=== PATIENT | female | born 1980 | race Caucasian/White ===

== ENCOUNTER 2018-02-22 02:45 | Inpatient (IN) | END 2018-02-23 17:10 | disposition home or self-care (01) | DRG 872 ==

== ENCOUNTER 2018-09-08 03:57 | Inpatient (IN) | payer OTHER ==
[~2018-09-08] VITALS: Ht 162.6 cm; Wt 107.3 kg
[~2018-09-08 03:57] MED LIST: LEVO137T30 PO; SULF-182 PO
[2018-09-08] MEDS ORDERED: SODIUM CHLORIDE 0.9% 1L BAG IV* STA (04:02)
[2018-09-08] MEDS ORDERED: CEFTRIAXONE 1 GM/50 ML (PMX) 50 ML IVPB STA (04:02)
[2018-09-08] MEDS ORDERED: KETOROLAC 15 MG INJ IV STA (04:22)
[2018-09-08] MEDS ORDERED: INSULIN REGULAR, HUMAN 100 UNIT/1 ML 3ML VIAL ONE (05:09)
[2018-09-08] MEDS ORDERED: INSULIN REGULAR, HUMAN 100 UNIT/1 ML 3ML VIAL SC ONE (05:30)
--- NOTE | 2018-09-08 05:45 | ERD ---
ER Documentation Chief Complaint Chief Complaint ABD PAIN WITH FLANK X2DAYS HPI This is a 38-year-old female who presents for evaluation of 2 days of intermittent abdominal pain and right-sided flank pain. Today she had a fever, generally felt unwell, and this is her primary reason for presentation. She has not had any vomiting, no chest pain or shortness of breath. She did not take any medication prior to arrival, there are no alleviating factors ROS All systems reviewed and are negative except as per history of present illness. Medications Home Meds Active Scripts Sulfamethoxazole/Trimethoprim (Sulfamethoxazole-Tmp Ds Tablet) 1 Each Tablet, 1 TAB PO BID for 5 Days, TAB Prov:LAURA REYNOSO 02/23/18 Levothyroxine Sodium* (Synthroid*) 137 Mcg Tablet, 137 MCG PO DAILY@0600 for 30 Days, TAB Prov:LAURA REYNOSO 02/23/18 Allergies Allergies: Coded Allergies: No Known Allergies (Verified Allergy, Unknown, 11/08/11) PMhx/Soc History of Surgery: Yes (CS X3) Anesthesia Reaction: No Hx Neurological Disorder: No Hx Respiratory Disorders: No Hx Cardiac Disorders: No Hx Psychiatric Problems: Yes (DEPRESSION ,ANXIETY) Hx Miscellaneous Medical Probl: Yes (hx. of VAPE use. ) Hx Alcohol Use: Yes Hx Substance Use: No Hx Tobacco Use: No (VAPE) Physical Exam Vitals Vital Signs Date Temp Pulse Resp B/P (MAP) Pulse Ox O2 O2 Flow FiO2 Time Delivery Rate 09/08/18 101.6 115 18 141/85 99 04:01 (103) Physical Exam Const: Diaphoretic, mild distress Head: Atraumatic Eyes: Normal Conjunctiva ENT: Normal External Ears, Nose and Mouth. Neck: Full range of motion. No meningismus. Resp: Clear to auscultation bilaterally Cardio: Regular rate and rhythm, no murmurs Abd: Soft, there is no focal tenderness, there is no McBurney's point tenderness, negative Aguirre sign, no guarding, non distended. Normal bowel sounds Skin: No petechiae or rashes Back: No midline or flank tenderness Ext: No cyanosis, or edema Neur: Awake and alert Psych: Normal Mood and Affect Result Diagram: 09/08/18 04109/08/18 041 Results 24 hrs Laboratory Tests Test 09/08/18 04:10 09/08/18 04:11 09/08/18 04:16 09/08/18 04:21 Urine Color YELLOW Urine Clarity CLEAR Urine pH 6.0 Urine Specific 1.037 [place] Urine Ketones TRACE mg/dL Urine Nitrite POSITIVE mg/dL Urine Bilirubin NEGATIVE mg/dL Urine NEGATIVE mg/dL Urobilinogen Urine Leukocyte NEGATIVE Deonte/ul Esterase Urine Microscopic 15 /HPF RBC Urine Microscopic 7 /HPF WBC Urine Squamous FEW /HPF Epithelial Cells Urine Bacteria FEW /HPF Urine Hemoglobin 1+ mg/dL Urine Glucose 3+ mg/dL Urine Total NEGATIVE mg/dl Protein White Blood Count 15.5 10^3/ul Red Blood Count 5.04 10^6/ul Hemoglobin 14.1 g/dl Hematocrit 41.6 % Mean Corpuscular 82.5 fl Volume Mean Corpuscular 28.0 pg Hemoglobin Mean Corpuscular 33.9 g/dl Hemoglobin Concen t Red Cell 12.1 % Distribution Width Platelet Count 282 10^3/UL Mean Platelet 9.4 fl Volume Immature 0.800 % Granulocytes % Neutrophils % 86.1 % Lymphocytes % 5.6 % Monocytes % 7.1 % Eosinophils % 0.1 % Basophils % 0.3 % Nucleated Red 0.0 /100WBC Blood Cells % Immature 0.130 10^3/ul Granulocytes # Neutrophils # 13.3 10^3/ul Lymphocytes # 0.9 10^3/ul Monocytes # 1.1 10^3/ul Eosinophils # 0.0 10^3/ul Basophils # 0.0 10^3/ul Nucleated Red 0.0 10^3/ul Blood Cells # Prothrombin Time 14.6 Sec Prothrombin Time 1.1 Ratio INR International 1.13 Normalized Ratio Activated 29.7 Sec Partial Thrombopl ast Time Sodium Level 132 mmol/L Potassium Level 4.2 mmol/L Chloride Level 96 mmol/L Carbon Dioxide 23 mmol/L Level Anion Gap 13 Blood Urea 11 mg/dl Nitrogen Creatinine 0.58 mg/dl Est Glomerular > 60 mL/min Filtrat Rate mL/min Glucose Level 462 mg/dl Calcium Level 9.6 mg/dl Total Bilirubin 0.9 mg/dl Direct Bilirubin 0.00 mg/dl Indirect 0.9 mg/dl Bilirubin Aspartate Amino 28 IU/L Transf (AST/SGOT) Alanine 30 IU/L Aminotransferase (ALT/SGPT) Alkaline 90 IU/L Phosphatase Troponin I < 0.012 ng/ml Total Protein 7.7 g/dl Albumin 4.0 g/dl Globulin 3.70 g/dl Albumin/Globulin 1.08 Ratio Lipase 67 U/L Bedside Urine pH 6.0 (LAB) Bedside Urine 1+ Protein (LAB) Bedside Urine 0.50% Glucose (UA) Bedside Urine Negative Ketones (LAB) Bedside Urine 1+ Blood Bedside Urine Positive Nitrite (LAB) Bedside Urine Negative Leukocyte Esteras e (L POC Venous 1.8 mmol/L Lactate POC Beta HCG, NEGATIVE Qualitative Test 09/08/18 04:25 09/08/18 05:27 Bedside Glucose 511 mg/dL 444 mg/dL Current Medications Medications Dose Sig/Italo Start Time Status Last (Trade) Ordered Route PRN Stop Time Admin Dose Reason Admin Sodium 3,180 ml BOLUS OVER 2 09/08/18 DC 09/08/18 Chloride HOURS STAT 04:02 04:15 (NS) IV* 09/08/18 04:07 Ceftriaxone 50 ml @ ONCE STAT 09/08/18 DC 09/08/18 Sodium 100 mls/hr IVPB 04:02 04:32 09/08/18 04:31 Ketorolac 15 mg ONCE STAT 09/08/18 DC 09/08/18 Tromethamine IV 04:22 04:32 (Toradol) 09/08/18 04:24 Insulin 10 unit ONCE ONCE 09/08/18 DC 09/08/18 Human SC 05:30 05:30 Regular 09/08/18 05:31 (Humulin R) Insulin 300 unit STK-MED 09/08/18 DC Human ONCE .ROUTE 05:09 Regular 09/08/18 05:10 (Humulin R) Procedures/MDM This is a 38-year-old female presents for evulsion of fever and abdominal pain. Her abdomen is poorly localized, she has no peritoneal signs on abdominal exam, a code sepsis was called given her fever, tachycardia, her labs are notable for leukocytosis, as well as a blood sugar 462. She had no known history of diabetes, she had no evidence of DKA, insulin subcu was given at 10 units. She is given ceftriaxone empirically, as her urinalysis was nitrite positive, with presumptive pyelonephritis. She did not have significant pyuria, the CT scan of the abdomen pelvis was ordered to evaluate for any secondary cause of her fever. This is pending. Sepsis Documentation: Patient's infectious symptoms have not stabilized and the patient is at risk of rapid decompensation. The patient will be admitted for careful hydration, antibiotic therapy, and infectious source control. SEVERE SEPSIS CRITERIA: Infectious source: Pyelonephritis End organ damage indicated by: No evidence of end organ damage SEPSIS MANAGEMENT Time of recognition of sepsis: [Upon arrival]. Time of recognition of severe sepsis: [No severe sepsis at this time]. Time of recognition of septic shock: [No septic shock at this time]. 3 HOUR BUNDLE Blood cultures x 2 before broad-spectrum antibiotics: [Yes] 30 ml/kg NS bolus [Completed] Initial lactate [lactate one-point Repeat lactate [pending SEPTIC SHOCK ASSESSMENT: No evidence of septic shock CRITICAL CARE Critical care time [35] minutes Emergent fluid management while maintaining close respiratory support. P rovision of immediate and broad-spectrum antibiotic therapy. Simultaneous assessment for possible sources in order to direct targeted therapy. Consideration for invasive and chemical support to prevent cardiopulmonary collapse. Critical care time is independent of procedures performed. EKG: Rate/Rhythm: Normal Sinus Rhythm QRS, ST, T-waves: No changes consistent w/ acute ischemia Impression: No evidence of ischemia or arrhythmia Departure Diagnosis: Primary Impression: Abdominal pain Abdominal location: unspecified location Qualified Codes: R10.9 - Unspecified abdominal pain Additional Impression: Sepsis Sepsis type: sepsis due to unspecified organism Qualified Codes: A41.9 - Sepsis, unspecified organism Condition: CARLITO Velasquez MD Sep 08, 2018 05:45
[2018-09-08] MEDS ORDERED: LEVO137T26 PO (06:34)
[2018-09-08 09:30] VITALS: BP 153/79; PULSE 102; RESP 18
[2018-09-08] MEDS ORDERED: HYDROCODONE/APAP (5/325) TAB PO PRN (12:00)
[2018-09-08 12:08] VITALS: Ht 162.6 cm; Wt 107.3 kg
[2018-09-08] MEDS ORDERED: DEXTROSE 50% 50 ML SYRINGE IV PRN ×2 (13:30)
[2018-09-08] MEDS ORDERED: GLUCAGON 1 MG INJ IM PRN (13:30)
[2018-09-08] MEDS ORDERED: GLUCOSE GEL 15 GRAM TUBE BUCCAL PRN (13:30)
[2018-09-08] MEDS ORDERED: GLUCOSE GEL 15 GRAM TUBE PO PRN ×2 (13:30)
[2018-09-08 14:24] VITALS: BP 131/61; PULSE 54; RESP 20
[2018-09-08] MEDS: ACETAMINOPHEN 325 MG TAB PO PRN (17:38)
--- NOTE | 2018-09-08 17:45 | CONS ---
Assessment/Plan Assessment/Plan Hospital Course (Demo Recall) assessment/impression - asepsis due to probable upper UTI and pyelonephritis - h/o UTI - hypothyroidism recommendations - pending results: cultures of blood and urine - continue ceftriaxone (09/07/2018-) management d/w Pt's , VIVIAN Reynoso and MIRA Rios Consultation Date/Type/Reason Admit Date/Time Sep 08, 2018 at 05:31 Date of Consultation: Sep 08, 2018 Type of Consult ID Reason for Consultation sepsis due to probable upper UTI/pyelonephritis Requesting Provider: LAURA REYNOSO Date/Time of Note DATE: 09/08/18 TIME: 17:38 Hx of Present Illness This is a 38 yo female without significant past medical history who presented at ER on 09/07/2018 c/o malaise and dysuria. Pt just took a pain medication prior to my visit and was completely asleep. Her gave me her HPI. When she was presented she had temp and leukocytosis. Her urinalysis showed mild pyuria. Pt was started on ceftriaxone and admitted. VIVIAN Reynoso requested ID consultation on this Pt. Subjective hx not possible: other (Pt was completely asleep after taking a pain medication) Past Medical History Medical History: hypothyroid, urinary tract infection Home Meds Reported Medications Levothyroxine Sodium* (Levoxyl*) 137 Mcg Tablet, 137 MCG PO BEFORE BREAKFAST, #30 TAB 09/08/18 Discontinued Scripts Sulfamethoxazole/Trimethoprim (Sulfamethoxazole-Tmp Ds Tablet) 1 Each Tablet, 1 TAB PO BID for 5 Days, TAB Prov:LAURA REYNOSO 02/23/18 Levothyroxine Sodium* (Synthroid*) 137 Mcg Tablet, 137 MCG PO DAILY@0600 for 30 Days, TAB Prov:LAURA REYNOSO 02/23/18 Medications Current Medications Acetaminophen/ Hydrocodone Bitart ([place] (5/325)) 1 tab Q6H PRN PO MODERATE PAIN LEVEL 4-6 Last administered on 09/08/18at 15:53; Admin Dose 1 TAB; Start 09/08/18 at 12:00 Diagnostic Test (Pha) (Accu-Chek) 1 ea 02 XX ; Start 09/09/18 at 02:00 Insulin Aspart (Novolog Insulin Pen) NOVOLOG *MILD* ALGORITHM WITH MEALS BEDTIME SC ; Start 09/08/18 at 18:00 Levothyroxine Sodium (Synthroid) 137 mcg DAILY@06 PO ; Start 09/09/18 at 06:00 Miscellaneous Information 1 ea NOTE XX ; Start 09/08/18 at 13:30 Glucose (Glutose) 15 gm Q15M PRN PO DECREASED GLUCOSE; Start 09/08/18 at 13:30 Glucose (Glutose) 22.5 gm Q15M PRN PO DECREASED GLUCOSE; Start 09/08/18 at 13:30 Dextrose (D50w Syringe) 25 ml Q15M PRN IV DECREASED GLUCOSE; Start 09/08/18 at 13:30 Dextrose (D50w Syringe) 50 ml Q15M PRN IV DECREASED GLUCOSE; Start 09/08/18 at 13:30 Glucagon (Glucagen) 1 mg Q15M PRN IM DECREASED GLUCOSE; Start 09/08/18 at 13:30 Glucose (Glutose) 15 gm Q15M PRN BUCCAL DECREASED GLUCOSE; Start 09/08/18 at 13:30 Pantoprazole (Protonix Tab) 40 mg BID@06,18 PO ; Start 09/08/18 at 18:00 Acetaminophen (Tylenol Tab) 650 mg Q6H PRN PO MILD PAIN(1-3)OR ELEVATED TEMP; Start 09/08/18 at 16:30 Allergies: Coded Allergies: No Known Allergies (Verified Allergy, Unknown, 09/08/18) Past Surgical History Past Surgical Hx: other (C section) Social History Smoking Status: Former smoker Drug Use: other (meth on previous screen) Exam/Review of Systems Exam Vitals Vital Signs Date Temp Pulse Resp B/P (MAP) Pulse Ox O2 O2 Flow FiO2 Time Delivery Rate 09/08/18 101.3 54 20 131/61 99 14:24 (84) 09/08/18 Room Air 09:30 Intake and Output 09/07/18 09/07/18 09/08/18 1515:00 23:00 07:00 IntakeIntake Total 3230 ml BalanceBalance 3230 ml Constitutional: well developed, obese, other (asleep) Psych: other (asleep) Head: normocephalic, atraumatic Eyes: nl lids ENMT: nl external ears & nose, nl nasal mucosa & septum Neck: other (not swollen) Respiratory: clear to auscultation, normal air movement Cardiovascular: regular rate and rhythm, nl pulses Gastrointestinal: soft, non-tender; No distended Genitourinary - Female: No CVA tenderness Musculoskeletal: nl extremities to inspection Extremities: No edema Neurological: other (asleep) Skin: nl turgor; No rash or lesions Lymph: No nl lymph nodes Results Result Diagram: 09/08/18 0411 09/08/18410 Results 24hrs Laboratory Tests Test 09/08/18 04:10 09/08/18 04:11 09/08/18 04:16 09/08/18 04:21 Urine Color YELLOW Urine Clarity CLEAR Urine pH 6.0 Urine Specific 1.037 [place] Urine Ketones TRACE A Urine Nitrite POSITIVE A Urine Bilirubin NEGATIVE Urine Urobilinogen NEGATIVE Urine Leukocyte NEGATIVE Esterase Urine Microscopic 15 H RBC Urine Microscopic 7 H WBC Urine Squamous FEW Epithelial Cells Urine Bacteria FEW A Urine Hemoglobin 1+ H Urine Glucose 3+ H Urine Total Protein NEGATIVE Thyroid Stimulating 12.900 H Hormone (TSH) White Blood Count 15.5 #H Red Blood Count 5.04 # Hemoglobin 14.1 # Hematocrit 41.6 # Mean Corpuscular 82.5 Volume Mean Corpuscular 28.0 L Hemoglobin Mean Corpuscular 33.9 Hemoglobin Concent Red Cell 12.1 Distribution Width Platelet Count 282 Mean Platelet Volume 9.4 Immature 0.800 H Granulocytes % Neutrophils % 86.1 H Lymphocytes % 5.6 L Monocytes % 7.1 Eosinophils % 0.1 Basophils % 0.3 Nucleated Red Blood 0.0 Cells % Immature 0.130 H Granulocytes # Neutrophils # 13.3 H Lymphocytes # 0.9 Monocytes # 1.1 H Eosinophils # 0.0 Basophils # 0.0 Nucleated Red Blood 0.0 Cells # Prothrombin Time 14.6 Prothrombin Time 1.1 Ratio INR International 1.13 Normalized Ratio Activated 29.7 Partial Thromboplast Time Sodium Level 132 L Potassium Level 4.2 Chloride Level 96 L Carbon Dioxide Level 23 Anion Gap 13 Blood Urea Nitrogen 11 Creatinine 0.58 Est Glomerular > 60 Filtrat Rate mL/min Glucose Level 462 *H Hemoglobin A1c 10.9 H Calcium Level 9.6 Total Bilirubin 0.9 Direct Bilirubin 0.00 Indirect Bilirubin 0.9 Aspartate Amino 28 Transf (AST/SGOT) Alanine 30 Aminotransferase (AL T/SGPT) Alkaline Phosphatase 90 Troponin I < 0.012 Total Protein 7.7 Albumin 4.0 Globulin 3.70 H Albumin/Globulin 1.08 Ratio Lipase 67 Bedside Urine pH 6.0 (LAB) Bedside Urine 1+ H Protein (LAB) Bedside Urine 0.50% H Glucose (UA) Bedside Urine Negative Ketones (LAB) Bedside Urine Blood 1+ H Bedside Urine Positive H Nitrite (LAB) Bedside Urine Negative Leukocyte Esterase (L POC Venous Lactate 1.8 POC Beta HCG, NEGATIVE Qualitative Test 09/08/18 04:25 09/08/18 05:27 09/08/18 06:33 09/08/18 07:03 Bedside Glucose 511 *H 444 *H 349 H POC Venous Lactate 1.4 Test 09/08/18 08:12 Lactic Acid Level 1.4 Medications Medication Current Medications Acetaminophen/ Hydrocodone Bitart ([place] (5/325)) 1 tab Q6H PRN PO MODERATE PAIN LEVEL 4-6 Last administered on 09/08/18at 15:53; Admin Dose 1 TAB; Start 09/08/18 at 12:00 Diagnostic Test (Pha) (Accu-Chek) 1 ea 02 XX ; Start 09/09/18 at 02:00 Insulin Aspart (Novolog Insulin Pen) NOVOLOG *MILD* ALGORITHM WITH MEALS BEDTIME SC ; Start 09/08/18 at 18:00 Levothyroxine Sodium (Synthroid) 137 mcg DAILY@06 PO ; Start 09/09/18 at 06:00 Miscellaneous Information 1 ea NOTE XX ; Start 09/08/18 at 13:30 Glucose (Glutose) 15 gm Q15M PRN PO DECREASED GLUCOSE; Start 09/08/18 at 13:30 Glucose (Glutose) 22.5 gm Q15M PRN PO DECREASED GLUCOSE; Start 09/08/18 at 13:30 Dextrose (D50w Syringe) 25 ml Q15M PRN IV DECREASED GLUCOSE; Start 09/08/18 at 13:30 Dextrose (D50w Syringe) 50 ml Q15M PRN IV DECREASED GLUCOSE; Start 09/08/18 at 13:30 Glucagon (Glucagen) 1 mg Q15M PRN IM DECREASED GLUCOSE; Start 09/08/18 at 13:30 Glucose (Glutose) 15 gm Q15M PRN BUCCAL DECREASED GLUCOSE; Start 09/08/18 at 13:30 Pantoprazole (Protonix Tab) 40 mg BID@06,18 PO ; Start 09/08/18 at 18:00 Acetaminophen (Tylenol Tab) 650 mg Q6H PRN PO MILD PAIN(1-3)OR ELEVATED TEMP; Start 09/08/18 at 16:30 JOHN WEN M.D. Sep 08, 2018 17:45
--- NOTE | 2018-09-08 17:58 | CONS ---
DATE OF ADMISSION: 09/08/2018 DATE OF CONSULTATION: TYPE OF CONSULTATION: Gastroenterology. Dear Dr. Ramirez: Thank you for asking me to see Ms. Anton in GI consultation. HISTORY OF PRESENT ILLNESS: As you know, the patient is a 38-year-old female who has been a dmitted to the hospital because of the back pain and the workup shows evidence of urinary tract infec tion. From the GI standpoint, consultation is requested because of abdominal pain and the patient say s that she has generalized abdominal pain for the past 2 days. Mostly, her main concern is in the ba ck. There is question of urinary tract infection which is being treated appropriately at this time. She had nausea, no vomiting. She had some loose stools yesterday 2 times and no bleeding noted. REVIEW OF SYSTEM: Positive for back pain. PAST MEDICAL HISTORY: Depression. PAST SURGICAL HISTORY: x3 in the past. MEDICATIONS PRIOR TO ADMISSION INCLUDE: None. In the hospital, she is on levothyroxine. PHYSICAL EXAMINATION: GENERAL: The patient is a 38-year-old female who at this time is very lethargic, very sleep y. She probably resumed sedatives. VITAL SIGNS: Temperature 101.3, pulse is 54, blood pressure is 131/61. CARDIOVASCULAR: Normal heart sounds. RESPIRATORY: Normal breath sounds. ABDOMEN: Showed obese abdomen. No significant tenderness can be localized. LABORATORY WORKUP: WBC count 15,500, hemoglobin 14.1. Potassium 4.2. Bilirubin 0.9, AST is 28, ALT 30, alkaline phosphatase is 90. INR/prothrombin time is 1.1. DIAGNOSTIC DATA: CAT scan of the abdomen shows evidence of no acute process. CLINICAL IMPRESSION: The patient is presenting with history of back pain considered to be secondary to urinary tract infection. She does have back pain primarily. Her abdominal pain is not of signifi cance at this time. She had 2 loose bowel movements yesterday. Maybe, she has mild gastroenteritis. At this time, the patient is very sleepy and I am unable to obtain appropriate history. PLAN: At this time, I recommend continue symptomatic treatment. I shall return again to get more in formation from the patient. Once again, Dr. Ramirez, thank you for this consultation. Dictated By: JAYRO PEÑA/JUWAN Conf#: [id number] [facility]#: [id number] CC: SEJAL RAMIREZ MD;*[facility]*
[2018-09-08] MEDS: INSULIN ASPART [NOVOLOG] 3 ML PEN SC SCH ×2 (18:04→22:17)
[2018-09-08] MEDS: PANTOPRAZOLE (EC) 40 MG TAB PO SCH (18:05)
[2018-09-08 18:09] VITALS: BP 103/52; PULSE 95; RESP 16
[2018-09-08 19:24] VITALS: BP 160/75; PULSE 99; RESP 17
[2018-09-08 19:52] VITALS: BP 123/58; PULSE 96; RESP 17
[2018-09-08] MEDS: metFORMIN (XR) 500 MG TAB PO SCH (21:00)
[2018-09-08] MEDS: INSULIN GLARGINE [LANTus] (100 UNITS/ML) SYG SC SCH (22:04)
--- NOTE | 2018-09-08 22:24 | CONS ---
Assessment/Plan Assessment/Plan Problems: (1) Type 2 diabetes mellitus with hyperglycemia Status: Chronic Comment: Initiate weight-based insulin: lantus 21 units qhs, Novolog 10 units qac. Add metformin 500 mg bid. Monitor glucose values and titrate doses to goal. Pt. will need DM education before d/c. Qualifiers: Qualified Codes: E11.65 - Type 2 diabetes mellitus with hyperglycemia Consultation Date/Type/Reason Admit Date/Time Sep 08, 2018 at 05:31 Date of Consultation: Sep 08, 2018 Type of Consult Endocrinology Reason for Consultation New onset T2DM Requesting Provider: LAURA REYNOSO Date/Time of Note DATE: 09/08/18 TIME: 22:18 Hx of Present Illness 38 y/o H F w/ h/o hypothyroidism in [facility] until last 2 days when she developed back pain. (+) abd. pain and general feeling of unease. (+) nausea, (+) loose BM. Yesterday developed fever and came to ER. Labs and vitals prompted code sepsis. Glucose level 469 mg/dL. Endo consulted. Subjective hx not possible: pt non-verbal (asleep and difficult to arouse. History taken from the chart) Past Medical History Medical History: hypothyroid, urinary tract infection Home Meds Reported Medications Levothyroxine Sodium* (Levoxyl*) 137 Mcg Tablet, 137 MCG PO BEFORE BREAKFAST, #30 TAB 09/08/18 Discontinued Scripts Sulfamethoxazole/Trimethoprim (Sulfamethoxazole-Tmp Ds Tablet) 1 Each Tablet, 1 TAB PO BID for 5 Days, TAB Prov:LAURA REYNOSO 02/23/18 Levothyroxine Sodium* (Synthroid*) 137 Mcg Tablet, 137 MCG PO DAILY@0600 for 30 Days, TAB Prov:LAURA REYNOSO 02/23/18 Medications Current Medications Insulin Aspart (Novolog Insulin Pen) NOVOLOG *MILD* ALGORITHM WITH MEALS BEDTIME SC Last administered on 09/08/18at 18:04; Admin Dose 2 UNIT; Start 09/08/18 at 18:00 Levothyroxine Sodium (Synthroid) 137 mcg DAILY@06 PO ; Start 09/09/18 at 06:00 Miscellaneous Information 1 ea NOTE XX ; Start 09/08/18 at 13:30 Glucose (Glutose) 15 gm Q15M PRN PO DECREASED GLUCOSE; Start 09/08/18 at 13:30 Glucose (Glutose) 22.5 gm Q15M PRN PO DECREASED GLUCOSE; Start 09/08/18 at 13:30 Dextrose (D50w Syringe) 25 ml Q15M PRN IV DECREASED GLUCOSE; Start 09/08/18 at 13:30 Dextrose (D50w Syringe) 50 ml Q15M PRN IV DECREASED GLUCOSE; Start 09/08/18 at 13:30 Glucagon (Glucagen) 1 mg Q15M PRN IM DECREASED GLUCOSE; Start 09/08/18 at 13:30 Glucose (Glutose) 15 gm Q15M PRN BUCCAL DECREASED GLUCOSE; Start 09/08/18 at 13:30 Pantoprazole (Protonix Tab) 40 mg BID@06,18 PO Last administered on 09/08/18at 18:05; Admin Dose 40 MG; Start 09/08/18 at 18:00 Acetaminophen (Tylenol Tab) 650 mg Q6H PRN PO MILD PAIN(1-3)OR ELEVATED TEMP Last administered on 09/08/18at 17:38; Admin Dose 650 MG; Start 09/08/18 at 16:30 Diagnostic Test (Pha) (Accu-Chek) 1 ea 02 XX ; Start 09/09/18 at 02:00 Insulin Glargine (Lantus) 21 units DAILY@2000 SC ; Start 09/08/18 at 20:00 Insulin Aspart (Novolog Insulin Pen) 10 unit WITH MEALS SC ; Start 09/09/18 at 08:00 Metformin HCl (Glucophage Xr) 500 mg BID PO ; Start 09/08/18 at 21:00 Allergies: Coded Allergies: No Known Allergies (Verified Allergy, Unknown, 09/08/18) Past Surgical History Past Surgical Hx: other (C section x 3) Family History Significant Family History: other (unknown) Social History unknown Alcohol Use: other (unknown) Smoking Status: Former smoker Drug Use: other (meth on previous screen) Exam/Review of Systems Exam Vitals VS - Last 72 Hours, by Label Date Temp Pulse Resp B/P (MAP) Pulse Ox O2 O2 Flow FiO2 Time Delivery Rate 09/08/18 98.4 96 17 123/58 97 19:52 (79) 09/08/18 99.6 95 16 103/52 97 Room Air 18:09 (69) 09/08/18 100.3 17:38 09/08/18 101.3 54 20 131/61 99 14:24 (84) 09/08/18 99.7 102 18 153/79 99 Room Air 09:30 (103) 09/08/18 86 18 139/88 100 Room Air 09:00 (105) 09/08/18 99.2 85 18 113/66 100 Room Air 07:30 (82) 09/08/18 98.8 89 18 106/62 100 Room Air 07:00 (77) 09/08/18 88 18 106/59 97 Room Air 06:35 (75) 09/08/18 99.5 91 26 134/73 96 Room Air 05:34 (93) 09/08/18 101.6 115 18 141/85 99 04:01 (103) Vital Signs Date Temp Pulse Resp B/P (MAP) Pulse Ox O2 O2 Flow FiO2 Time Delivery Rate 09/08/18 98.4 96 17 123/58 97 19:52 (79) 09/08/18 Room Air 18:09 Intake and Output 09/07/18 09/07/18 09/08/18 1515:00 23:00 07:00 IntakeIntake Total 3230 ml BalanceBalance 3230 ml Constitutional: obese; No alert (asleep) Eyes: nl conjunctiva, EOMI, nl lids, nl sclera, PERRL ENMT: nl external ears & nose, nl lips & teeth, mucosa pink and moist Neck: supple, non-tender; No bruits, No masses, No thyromegaly Respiratory: clear to auscultation, normal air movement Cardiovascular: regular rate and rhythm, nl pulses; No edema, No murmurs/extra sounds, No rub Gastrointestinal: soft, nl liver, spleen, non-tender, bowel sounds; No mass, No rebound or guarding Musculoskeletal: nl extremities to inspection Extremities: normal pulses; No cyanosis, No clubbing, No edema Neurological: lethargic Additional Comments Bedside Glucose - 72 Hours Test 09/08/18 04:25 09/08/18 05:27 09/08/18 07:03 09/08/18 17:56 Bedside 511 444 349 217 Glucose mg/dL (70-220) mg/dL (70-220) mg/dL (70-220) mg/dL (70-220) *H *H H Test 09/08/18 22:01 Bedside 190 Glucose mg/dL (70-220) Results Result Diagram: 09/08/18 0411 09/08/18 0411 Results 24hrs Laboratory Tests Test 09/08/18 04:10 09/08/18 04:11 09/08/18 04:16 09/08/18 04:21 Urine Color YELLOW Urine Clarity CLEAR Urine pH 6.0 Urine Specific 1.037 H [place] Urine Ketones TRACE A Urine Nitrite POSITIVE A Urine Bilirubin NEGATIVE Urine Urobilinogen NEGATIVE Urine Leukocyte NEGATIVE Esterase Urine Microscopic 15 H RBC Urine Microscopic 7 H WBC Urine Squamous FEW Epithelial Cells Urine Bacteria FEW A Urine Hemoglobin 1+ H Urine Glucose 3+ H Urine Total Protein NEGATIVE Thyroid Stimulating 12.900 H Hormone (TSH) White Blood Count 15.5 #H Red Blood Count 5.04 # Hemoglobin 14.1 # Hematocrit 41.6 # Mean Corpuscular 82.5 Volume Mean Corpuscular 28.0 L Hemoglobin Mean Corpuscular 33.9 Hemoglobin Concent Red Cell 12.1 Distribution Width Platelet Count 282 Mean Platelet Volume 9.4 Immature 0.800 H Granulocytes % Neutrophils % 86.1 H Lymphocytes % 5.6 L Monocytes % 7.1 Eosinophils % 0.1 Basophils % 0.3 Nucleated Red Blood 0.0 Cells % Immature 0.130 H Granulocytes # Neutrophils # 13.3 H Lymphocytes # 0.9 Monocytes # 1.1 H Eosinophils # 0.0 Basophils # 0.0 Nucleated Red Blood 0.0 Cells # Prothrombin Time 14.6 Prothrombin Time 1.1 Ratio INR International 1.13 Normalized Ratio Activated 29.7 Partial Thromboplast Time Sodium Level 132 L Potassium Level 4.2 Chloride Level 96 L Carbon Dioxide Level 23 Anion Gap 13 Blood Urea Nitrogen 11 Creatinine 0.58 Est Glomerular > 60 Filtrat Rate mL/min Glucose Level 462 *H Hemoglobin A1c 10.9 H Calcium Level 9.6 Total Bilirubin 0.9 Direct Bilirubin 0.00 Indirect Bilirubin 0.9 Aspartate Amino 28 Transf (AST/SGOT) Alanine 30 Aminotransferase (AL T/SGPT) Alkaline Phosphatase 90 Troponin I < 0.012 Total Protein 7.7 Albumin 4.0 Globulin 3.70 H Albumin/Globulin 1.08 Ratio Lipase 67 Bedside Urine pH 6.0 (LAB) Bedside Urine 1+ H Protein (LAB) Bedside Urine 0.50% H Glucose (UA) Bedside Urine Negative Ketones (LAB) Bedside Urine Blood 1+ H Bedside Urine Positive H Nitrite (LAB) Bedside Urine Negative Leukocyte Esterase (L POC Venous Lactate 1.8 POC Beta HCG, NEGATIVE Qualitative Test 09/08/18 04:25 09/08/18 05:27 09/08/18 06:33 09/08/18 07:03 Bedside Glucose 511 *H 444 *H 349 H POC Venous Lactate 1.4 Test 09/08/18 08:12 09/08/18 17:56 09/08/18 22:01 Lactic Acid Level 1.4 Bedside Glucose 217 190 Medications Medication Current Medications Insulin Aspart (Novolog Insulin Pen) NOVOLOG *MILD* ALGORITHM WITH MEALS BEDTIME SC Last administered on 09/08/18at 18:04; Admin Dose 2 UNIT; Start 09/08/18 at 18:00 Levothyroxine Sodium (Synthroid) 137 mcg DAILY@06 PO ; Start 09/09/18 at 06:00 Miscellaneous Information 1 ea NOTE XX ; Start 09/08/18 at 13:30 Glucose (Glutose) 15 gm Q15M PRN PO DECREASED GLUCOSE; Start 09/08/18 at 13:30 Glucose (Glutose) 22.5 gm Q15M PRN PO DECREASED GLUCOSE; Start 09/08/18 at 13:30 Dextrose (D50w Syringe) 25 ml Q15M PRN IV DECREASED GLUCOSE; Start 09/08/18 at 13:30 Dextrose (D50w Syringe) 50 ml Q15M PRN IV DECREASED GLUCOSE; Start 09/08/18 at 13:30 Glucagon (Glucagen) 1 mg Q15M PRN IM DECREASED GLUCOSE; Start 09/08/18 at 13:30 Glucose (Glutose) 15 gm Q15M PRN BUCCAL DECREASED GLUCOSE; Start 09/08/18 at 13:30 Pantoprazole (Protonix Tab) 40 mg BID@06,18 PO Last administered on 09/08/18at 18:05; Admin Dose 40 MG; Start 09/08/18 at 18:00 Acetaminophen (Tylenol Tab) 650 mg Q6H PRN PO MILD PAIN(1-3)OR ELEVATED TEMP Last administered on 09/08/18at 17:38; Admin Dose 650 MG; Start 09/08/18 at 16:30 Diagnostic Test (Pha) (Accu-Chek) 1 ea 02 XX ; Start 09/09/18 at 02:00 Insulin Glargine (Lantus) 21 units DAILY@2000 SC ; Start 09/08/18 at 20:00 Insulin Aspart (Novolog Insulin Pen) 10 unit WITH MEALS SC ; Start 09/09/18 at 08:00 Metformin HCl (Glucophage Xr) 500 mg BID PO ; Start 09/08/18 at 21:00 LALO WAN MD Sep 08, 2018 22:24
[2018-09-09] MEDS: ACETAMINOPHEN 325 MG TAB PO PRN ×3 (00:16→18:55)
[2018-09-09 01:46] VITALS: BP 113/66; PULSE 95; RESP 18
[2018-09-09] MEDS ORDERED: ACCU-CHEK XX SCH (02:00)
[2018-09-09] MEDS: ACCU-CHEK XX SCH (02:00)
[2018-09-09] MEDS ORDERED: LEVOTHYROXINE 137 MCG TAB PO SCH (06:00)
[2018-09-09] MEDS: PANTOPRAZOLE (EC) 40 MG TAB PO SCH ×2 (06:00→17:27)
--- NOTE | 2018-09-09 06:13 | PN ---
Date/Time of Note Date/Time of Note DATE: 09/09/18 TIME: 06:13 Assessment/Plan VTE Prophylaxis Risk score (from Nsg)>0 risk: 2 SCD applied (from Nsg): Yes Lines/Catheters IV Catheter Type (from Nrsg): Peripheral IV Urinary Cath still in place: No Assessment/Plan Result Diagram: 09/08/18 0411 09/08/18 0411 Results 24hrs Laboratory Tests Test 09/08/18 06:33 09/08/18 07:03 09/08/18 08:12 09/08/18 17:56 POC Venous Lactate 1.4 Bedside Glucose 349 H 217 Lactic Acid Level 1.4 Test 09/08/18 22:01 09/09/18 03:14 09/09/18 04:27 Bedside Glucose 190 217 White Blood Count Pending Red Blood Count Pending Hemoglobin Pending Hematocrit Pending Mean Corpuscular Pending Volume Mean Corpuscular Pending Hemoglobin Mean Corpuscular Pending Hemoglobin Concent Red Cell Pending Distribution Width Platelet Count Pending Mean Platelet Volume Pending Exam/Review of Systems Exam Vitals Vital Signs Date Temp Pulse Resp B/P (MAP) Pulse Ox O2 O2 Flow FiO2 Time Delivery Rate 09/09/18 97.7 95 18 113/66 94 01:46 (82) 09/08/18 Room Air 18:09 Intake and Output 09/08/18 09/08/18 09/09/18 1414:59 22:59 06:59 IntakeIntake Total 720 ml 720 ml BalanceBalance 720 ml 720 ml Results Results 24hrs Laboratory Tests Test 09/08/18 06:33 09/08/18 07:03 09/08/18 08:12 09/08/18 17:56 POC Venous Lactate 1.4 Bedside Glucose 349 H 217 Lactic Acid Level 1.4 Test 09/08/18 22:01 09/09/18 03:14 09/09/18 04:27 Bedside Glucose 190 217 White Blood Count Pending Red Blood Count Pending Hemoglobin Pending Hematocrit Pending Mean Corpuscular Pending Volume Mean Corpuscular Pending Hemoglobin Mean Corpuscular Pending Hemoglobin Concent Red Cell Pending Distribution Width Platelet Count Pending Mean Platelet Volume Pending Medications Medication Current Medications Insulin Aspart (Novolog Insulin Pen) NOVOLOG *MILD* ALGORITHM WITH MEALS BEDTIME SC Last administered on 09/08/18at 22:17; Admin Dose 1 UNIT; Start 09/08/18 at 18:00 Levothyroxine Sodium (Synthroid) 137 mcg DAILY@06 PO Last administered on 09/09/18at 06:00; Admin Dose 137 MCG; Start 09/09/18 at 06:00 Miscellaneous Information 1 ea NOTE XX ; Start 09/08/18 at 13:30 Glucose (Glutose) 15 gm Q15M PRN PO DECREASED GLUCOSE; Start 09/08/18 at 13:30 Glucose (Glutose) 22.5 gm Q15M PRN PO DECREASED GLUCOSE; Start 09/08/18 at 13:30 Dextrose (D50w Syringe) 25 ml Q15M PRN IV DECREASED GLUCOSE; Start 09/08/18 at 13:30 Dextrose (D50w Syringe) 50 ml Q15M PRN IV DECREASED GLUCOSE; Start 09/08/18 at 13:30 Glucagon (Glucagen) 1 mg Q15M PRN IM DECREASED GLUCOSE; Start 09/08/18 at 13:30 Glucose (Glutose) 15 gm Q15M PRN BUCCAL DECREASED GLUCOSE; Start 09/08/18 at 13:30 Pantoprazole (Protonix Tab) 40 mg BID@06,18 PO Last administered on 09/09/18at 06:00; Admin Dose 40 MG; Start 09/08/18 at 18:00 Acetaminophen (Tylenol Tab) 650 mg Q6H PRN PO MILD PAIN(1-3)OR ELEVATED TEMP Last administered on 09/09/18at 00:16; Admin Dose 650 MG; Start 09/08/18 at 16:30 Diagnostic Test (Pha) (Accu-Chek) 1 ea 02 XX ; Start 09/09/18 at 02:00 Insulin Glargine (Lantus) 21 units DAILY@1999 SC Last administered on 09/08/18at 22:04; Admin Dose 21 UNITS; Start 09/08/18 at 20:00 Insulin Aspart (Novolog Insulin Pen) 10 unit WITH MEALS SC ; Start 09/09/18 at 08:00 Metformin HCl (Glucophage Xr) 500 mg BID PO ; Start 09/08/18 at 21:00 LAURA REYNOSO Sep 09, 2018 06:13
--- NOTE | 2018-09-09 06:18 | PN ---
DATE: 09/08/2018 SUBJECTIVE: The patient underwent colectomy for dilated cecum and narrowing of the hepatic flexure. She is currently intubated. She is still on vasopressors. However, she seems to be on much less do se of vasopressors. OBJECTIVE: VITAL SIGNS: Blood pressure is 110/70. CARDIOVASCULAR: Normal heart sounds. RESPIRATORY: Normal breath sounds. ABDOMEN: Showed status post surgery. Other problems include renal failure, respiratory failure, septic shock, diabetes. LABORATORY: WBC is 8100, hemoglobin 6.5. Potassium is 4.9. CLINICAL IMPRESSION: The patient is status post right hemicolectomy for fecal impaction. The pathology report is at this time pending regarding the colonic pathology. PLAN: Continue NG suction, pressors, IV fluids and supportive therapy. Dictated By: JAYRO PEÑA/NTS Conf#: [id number] DID#: [id number] CC: SEJAL MOTLEY MD;*EndCC*
[2018-09-09 08:02] VITALS: BP 121/75; PULSE 104; RESP 20
[2018-09-09] MEDS: metFORMIN (XR) 500 MG TAB PO SCH ×2 (10:12→21:23)
[2018-09-09] MEDS: INSULIN ASPART [NOVOLOG] 3 ML PEN SC SCH ×7 (10:14→21:32)
--- NOTE | 2018-09-09 13:37 | CONS ---
Assessment/Plan Assessment/Plan Hospital Course (Demo Recall) assessment/impression - sepsis due to upper UTI and pyelonephritis - upper UTI and pyelonephritis due to Gram negative bacteria - h/o UTI - hypothyroidism recommendations - pending results: cultures of urine, in particular GNR - continue ceftriaxone (09/07/2018-) management d/w Pt's Consultation Date/Type/Reason Admit Date/Time Sep 08, 2018 at 05:31 Initial Consult Date 09/08/18 Type of Consult ID Requesting Provider: LAURA REYNOSO Date/Time of Note DATE: 09/09/18 TIME: 13:35 24 HR Interval Summary Subjective hx not possible: pt non-verbal, other (Pt was completely asleep again) Exam/Review of Systems Exam Vitals Vital Signs Date Temp Pulse Resp B/P (MAP) Pulse Ox O2 O2 Flow FiO2 Time Delivery Rate 09/09/18 100.0 104 20 121/75 97 08:02 (90) 09/08/18 Room Air 18:09 Intake and Output 09/08/18 09/08/18 09/09/18 1414:59 22:59 06:59 IntakeIntake Total 720 ml 720 ml 600 ml BalanceBalance 720 ml 720 ml 600 ml Constitutional: other (completely asleep) Head: normocephalic, atraumatic Eyes: nl lids ENMT: nl external ears & nose, nl nasal mucosa & septum Neck: other (not swollen) Respiratory: clear to auscultation, normal air movement Cardiovascular: regular rate and rhythm, nl pulses Gastrointestinal: soft, non-tender Genitourinary - Female: other (no supra-pubic tenderness) Musculoskeletal: nl extremities to inspection Extremities: normal pulses Neurological: other (deepl asleep after pain meds) Results Result Diagram: 09/09/1842609/09/18426 Results 24hrs Laboratory Tests Test 09/08/18 17:56 09/08/18 22:01 09/09/18 03:14 09/09/18 04:27 Bedside Glucose 217 190 217 White Blood Count 10.3 # Red Blood Count 4.62 Hemoglobin 12.8 Hematocrit 38.8 Mean Corpuscular 84.0 Volume Mean Corpuscular 27.7 L Hemoglobin Mean Corpuscular 33.0 Hemoglobin Concent Red Cell 12.5 Distribution Width Platelet Count 221 # Mean Platelet Volume 9.6 Immature 0.500 H Granulocytes % Neutrophils % 76.5 Lymphocytes % 13.3 L Monocytes % 9.1 Eosinophils % 0.2 Basophils % 0.4 Nucleated Red Blood 0.0 Cells % Immature 0.050 H Granulocytes # Neutrophils # 7.9 H Lymphocytes # 1.4 Monocytes # 0.9 Eosinophils # 0.0 Basophils # 0.0 Nucleated Red Blood 0.0 Cells # Sodium Level 136 Potassium Level 3.8 Chloride Level 103 Carbon Dioxide Level 25 Anion Gap 8 Blood Urea Nitrogen 7 Creatinine 0.50 Est Glomerular > 60 Filtrat Rate mL/min Glucose Level 206 # Calcium Level 8.5 Test 09/09/18 10:10 09/09/18 12:12 09/09/18 12:13 09/09/18 13:10 Bedside Glucose 206 203 189 169 Medications Medication Current Medications Insulin Aspart (Novolog Insulin Pen) NOVOLOG *MILD* ALGORITHM WITH MEALS BEDTIME SC Last administered on 09/09/18at 13:13; Admin Dose 1 UNIT; Start 09/08/18 at 18:00 Levothyroxine Sodium (Synthroid) 137 mcg DAILY@06 PO Last administered on 09/09/18at 06:00; Admin Dose 137 MCG; Start 09/09/18 at 06:00 Miscellaneous Information 1 ea NOTE XX ; Start 09/08/18 at 13:30 Glucose (Glutose) 15 gm Q15M PRN PO DECREASED GLUCOSE; Start 09/08/18 at 13:30 Glucose (Glutose) 22.5 gm Q15M PRN PO DECREASED GLUCOSE; Start 09/08/18 at 13:30 Dextrose (D50w Syringe) 25 ml Q15M PRN IV DECREASED GLUCOSE; Start 09/08/18 at 13:30 Dextrose (D50w Syringe) 50 ml Q15M PRN IV DECREASED GLUCOSE; Start 09/08/18 at 13:30 Glucagon (Glucagen) 1 mg Q15M PRN IM DECREASED GLUCOSE; Start 09/08/18 at 13:30 Glucose (Glutose) 15 gm Q15M PRN BUCCAL DECREASED GLUCOSE; Start 09/08/18 at 13:30 Pantoprazole (Protonix Tab) 40 mg BID@06,18 PO Last administered on 09/09/18at 06:00; Admin Dose 40 MG; Start 09/08/18 at 18:00 Acetaminophen (Tylenol Tab) 650 mg Q6H PRN PO MILD PAIN(1-3)OR ELEVATED TEMP Last administered on 09/09/18 10:29; Admin Dose 650 MG; Start 09/08/18 at 16:30 Diagnostic Test (Pha) (Accu-Chek) 1 02 XX ; Start 09/09/18 at 02:00 Insulin Glargine (Lantus) 21 units DAILY@2000 SC Last administered on 09/08/18 22:04; Admin Dose 21 UNITS; Start 09/08/18 at 20:00 Insulin Aspart (Novolog Insulin Pen) 10 unit WITH MEALS SC Last administered on 09/09/18 13:14; Admin Dose 10 UNIT; Start 09/09/18 at 08:00 Metformin HCl (Glucophage Xr) 500 mg BID PO Last administered on 09/09/18 10:12; Admin Dose 500 MG; Start 09/08/18 at 21:00 JOHN WEN M.D. Sep 09, 2018 13:37
[2018-09-09 14:09] VITALS: BP 112/68; PULSE 91; RESP 20
--- NOTE | 2018-09-09 18:06 | CONS ---
Assessment/Plan Assessment/Plan Problems: (1) Hypothyroidism Status: Chronic Comment: TSH > 12. Primary team increasing LT4 to 150 mcg/d which would ordinarily be appropriate. However, pt. was not adherent w/ her routine therapy. Would cont. LT4 137 mcg/d now and after d/c. (2) Type 2 diabetes mellitus with hyperglycemia Status: Chronic Comment: Excellent glycemic control on lantus 21 qhs, Novolog 10 qac, and metformin 500 mg bid. On d/c would give her metformin 1,000 mg bid and trial of glimepiride mg bid. It remains to be seen if this patient can maintain her glucose control w/o insulin. Often, once glucose levels at goal we can maintain them w/ orals and low-carb diet. Pt. understands may need insulin in the future. Qualifiers: Diabetes mellitus skilled nursing insulin use: without ocean transportation intermediary use Qualified Codes: E11.65 - Type 2 diabetes mellitus with hyperglycemia Consultation Date/Type/Reason Admit Date/Time Sep 08, 2018 at 05:31 Initial Consult Date 09/08/18 Type of Consult Endocrinology Reason for Consultation T2DM OOC Requesting Provider: LAURA REYNOSO Date/Time of Note DATE: 09/09/18 TIME: 18:00 24 HR Interval Summary Free Text/Dictation PMH: GDM, morbid obesity, hypothyroidism, chronic pain/lumbar spinal disease Has not been adherent w/ LT4 for last 2 m. Notes lost 200 lbs. on low-carb d iet. Was on DM meds previously but d/c'ed after last delivery. Constitutional: no complaints, improved Detailed Summary Respiratory: no complaints Cardiovascular: no complaints Gastrointestinal: no complaints Genitourinary: no complaints Musculoskeletal: back pain Neurologic: no complaints Exam/Review of Systems Exam Vitals VS - Last 72 Hours, by Label Date Temp Pulse Resp B/P (MAP) Pulse Ox O2 O2 Flow FiO2 Time Delivery Rate 09/09/18 99.0 91 20 112/68 98 14:09 (83) 09/09/18 100.0 104 20 121/75 97 08:02 (90) 09/09/18 97.7 95 18 113/66 94 01:46 (82) 09/08/18 98.4 96 17 123/58 97 19:52 (79) 09/08/18 99.6 95 16 103/52 97 Room Air 18:09 (69) 09/08/18 100.3 17:38 09/08/18 101.3 54 20 131/61 99 14:24 (84) 09/08/18 99.7 102 18 153/79 99 Room Air 09:30 (103) 09/08/18 86 18 139/88 100 Room Air 09:00 (105) 09/08/18 99.2 85 18 113/66 100 Room Air 07:30 (82) 09/08/18 98.8 89 18 106/62 100 Room Air 07:00 (77) 09/08/18 88 18 106/59 97 Room Air 06:35 (75) 09/08/18 99.5 91 26 134/73 96 Room Air 05:34 (93) 09/08/18 101.6 115 18 141/85 99 04:01 (103) Vital Signs Date Temp Pulse Resp B/P (MAP) Pulse Ox O2 O2 Flow FiO2 Time Delivery Rate 09/09/18 99.0 91 20 112/68 98 14:09 (83) 09/08/18 Room Air 18:09 Intake and Output 09/08/18 09/08/18 09/09/18 1515:00 23:00 07:00 IntakeIntake Total 720 ml 720 ml 600 ml BalanceBalance 720 ml 720 ml 600 ml Constitutional: alert, oriented, obese Respiratory: clear to auscultation, normal air movement Cardiovascular: regular rate and rhythm, nl pulses; No edema, No murmurs/extra sounds, No rub Gastrointestinal: soft, nl liver, spleen, non-tender, bowel sounds; No mass, No rebound or guarding Musculoskeletal: nl extremities to inspection Extremities: normal pulses; No cyanosis, No clubbing, No edema Neurological: [employer] II-XII intact, nl mental status, nl speech, nl strength Additional Comments Bedside Glucose - 72 Hours Test 09/08/18 04:25 09/08/18 05:27 09/08/18 07:03 09/08/18 17:56 Bedside 511 444 349 217 Glucose mg/dL (70-220) mg/dL (70-220) mg/dL (70-220) mg/dL (70-220) *H *H H Test 09/08/18 22:01 09/09/18 03:14 09/09/18 10:10 09/09/18 12:12 Bedside 190 217 206 203 Glucose mg/dL (70-220) mg/dL (70-220) mg/dL (70-220) mg/dL (70-220) Test 09/09/18 12:13 09/09/18 13:10 09/09/18 17:26 Bedside 189 169 123 Glucose mg/dL (70-220) mg/dL (70-220) mg/dL (70-220) Results Result Diagram: 09/09/18 0427 09/09/18 0427 Results 24hrs Laboratory Tests Test 09/08/18 22:01 09/09/18 03:14 09/09/18 04:27 09/09/18 10:10 Bedside Glucose 190 217 206 White Blood Count 10.3 # Red Blood Count 4.62 Hemoglobin 12.8 Hematocrit 38.8 Mean Corpuscular 84.0 Volume Mean Corpuscular 27.7 L Hemoglobin Mean Corpuscular 33.0 Hemoglobin Concent Red Cell 12.5 Distribution Width Platelet Count 221 # Mean Platelet Volume 9.6 Immature 0.500 H Granulocytes % Neutrophils % 76.5 Lymphocytes % 13.3 L Monocytes % 9.1 Eosinophils % 0.2 Basophils % 0.4 Nucleated Red Blood 0.0 Cells % Immature 0.050 H Granulocytes # Neutrophils # 7.9 H Lymphocytes # 1.4 Monocytes # 0.9 Eosinophils # 0.0 Basophils # 0.0 Nucleated Red Blood 0.0 Cells # Sodium Level 136 Potassium Level 3.8 Chloride Level 103 Carbon Dioxide Level 25 Anion Gap 8 Blood Urea Nitrogen 7 Creatinine 0.50 Est Glomerular > 60 Filtrat Rate mL/min Glucose Level 206 # Calcium Level 8.5 Test 09/09/18 12:12 09/09/18 12:13 09/09/18 13:10 09/09/18 17:26 Bedside Glucose 203 189 169 123 Medications Medication Current Medications Insulin Aspart (Novolog Insulin Pen) NOVOLOG *MILD* ALGORITHM WITH MEALS BEDTIME SC Last administered on 09/09/18at 13:13; Admin Dose 1 UNIT; Start at 18:00 Miscellaneous Information 1 ea NOTE XX ; Start 09/08/18 at 13:30 Glucose (Glutose) 15 gm Q15M PRN PO DECREASED GLUCOSE; Start 09/08/18 at 13:30 Glucose (Glutose) 22.5 gm Q15M PRN PO DECREASED GLUCOSE; Start 09/08/18 at 13:30 Dextrose (D50w Syringe) 25 ml Q15M PRN IV DECREASED GLUCOSE; Start 09/08/18 at 13:30 Dextrose (D50w Syringe) 50 ml Q15M PRN IV DECREASED GLUCOSE; Start 09/08/18 at 13:30 Glucagon (Glucagen) 1 mg Q15M PRN IM DECREASED GLUCOSE; Start 09/08/18 at 13:30 Glucose (Glutose) 15 gm Q15M PRN BUCCAL DECREASED GLUCOSE; Start 09/08/18 at 13:30 Pantoprazole (Protonix Tab) 40 mg BID@06,18 PO Last administered on 09/09/18at 17:27; Admin Dose 40 MG; Start 09/08/18 at 18:00 Acetaminophen (Tylenol Tab) 650 mg Q6H PRN PO MILD PAIN(1-3)OR ELEVATED TEMP Last administered on 09/09/18at 10:29; Admin Dose 650 MG; Start 09/08/18 at 16:30 Diagnostic Test (Pha) (Accu-Chek) 1 ea 02 XX ; Start 09/09/18 at 02:00 Insulin Glargine (Lantus) 21 units DAILY@2000 SC Last administered on 09/08/18at 22:04; Admin Dose 21 UNITS; Start 09/08/18 at 20:00 Insulin Aspart (Novolog Insulin Pen) 10 unit WITH MEALS SC Last administered on 09/09/18at 17:30; Admin Dose 10 UNIT; Start 09/09/18 at 08:00 Metformin HCl (Glucophage Xr) 500 mg BID PO Last administered on 09/09/18at 10:12; Admin Dose 500 MG; Start 09/08/18 at 21:00 Levothyroxine Sodium (Synthroid) 150 mcg DAILY@06 PO ; Start 09/10/18 at 06:00 LALO WAN MD Sep 09, 2018 18:06
--- NOTE | 2018-09-09 19:35 | CONS ---
DATE OF ADMISSION: 09/08/2018 DATE OF CONSULTATION: 09/09/2018 HISTORY OF PRESENT ILLNESS: The patient is a 38-year-old female admitted to the hospital be cause of back pain and a GI consultation is requested because of abdominal pain. The workup so far s howed evidence of a urinary tract infection, which could be causing back pain. Abdominal pain is not of great significance at this moment. She has tolerated a clear liquid diet. PHYSICAL EXAMINATION: GENERAL: The patient is alert and obese. VITAL SIGNS: Temperature 99, pulse is 91, blood pressure is 112/68. CARDIOVASCULAR: Normal heart sounds. RESPIRATORY: Normal breath sounds. ABDOMEN: Shows soft abdomen with no tenderness, no distention. LABORATORY WORKUP: Hemoglobin 12.8, WBC count is down to 10,300. Chemistry: Bilirubin 0.9. Other transaminases are normal. CLINICAL IMPRESSION: Abdominal pain is improved, probably the radiation of pain from the pyelonephri tis or referred pain, but she seems to be stable at this moment. PLAN: Continue symptomatic treatment. Dictated By: JAYRO PEÑA/NTS Conf#: [id number] DID#: [id number] CC: JAYRO RAMESH MD; SEJAL MOTLEY MD;*EndCC*
[2018-09-09 20:53] VITALS: BP 122/69; PULSE 55; RESP 18
[2018-09-09] MEDS: INSULIN GLARGINE [LANTus] (100 UNITS/ML) SYG SC SCH (21:28)
[2018-09-10] MEDS: ACCU-CHEK XX SCH (02:00)
[2018-09-10 02:17] VITALS: BP 112/64; PULSE 83; RESP 18
--- NOTE | 2018-09-10 04:55 | HP ---
Date/Time of Note Date/Time of Note DATE: 09/08/18 TIME: 15:33 Assessment/Plan Lines/Catheters IV Catheter Type (from Nrsg): Saline Lock Assessment/Plan Assessment/Plan - Sepsis - Admit to [facility] - ID consult- Dr Mcgrath notified - UTI - antibiotics per ID - Abdominal pain - CT abdomen/pelvis - No acute process in the imaged abdomen or pelvis.. No renal calcifications and no evidence of obstructive uropathy. - Gi consult- Dr Odonnell - pain control -PPI - Diabetes - Endocrinology consult- Dr Edwards notified - Glycemic control - Hgb AIC AM - Hypothyroidism - cont Sythroid - will do TSH am - Former Smoker - reinforce smoking cessation -Depression-no acute issues -Anxiety -SCD s Patient is seen in collaboration with Dr Ramirez Result Diagram: 09/08/1841009/[id number]/18410 Results 24hrs Laboratory Tests Test 09/08/18 04:10 09/08/18 04:11 09/08/18 04:16 09/08/18 04:21 Urine Color YELLOW Urine Clarity CLEAR Urine pH 6.0 Urine Specific 1.037 H Fox Urine Ketones TRACE A Urine Nitrite POSITIVE A Urine Bilirubin NEGATIVE Urine Urobilinogen NEGATIVE Urine Leukocyte NEGATIVE Esterase Urine Microscopic 15 H RBC Urine Microscopic 7 H WBC Urine Squamous FEW Epithelial Cells Urine Bacteria FEW A Urine Hemoglobin 1+ H Urine Glucose 3+ H Urine Total Protein NEGATIVE Thyroid Stimulating 12.900 H Hormone (TSH) White Blood Count 15.5 #H Red Blood Count 5.04 # Hemoglobin 14.1 # Hematocrit 41.6 # Mean Corpuscular 82.5 Volume Mean Corpuscular 28.0 L Hemoglobin Mean Corpuscular 33.9 Hemoglobin Concent Red Cell 12.1 Distribution Width Platelet Count 282 Mean Platelet Volume 9.4 Immature 0.800 H Granulocytes % Neutrophils % 86.1 H Lymphocytes % 5.6 L Monocytes % 7.1 Eosinophils % 0.1 Basophils % 0.3 Nucleated Red Blood 0.0 Cells % Immature 0.130 H Granulocytes # Neutrophils # 13.3 H Lymphocytes # 0.9 Monocytes # 1.1 H Eosinophils # 0.0 Basophils # 0.0 Nucleated Red Blood 0.0 Cells # Prothrombin Time 14.6 Prothrombin Time 1.1 Ratio INR International 1.13 Normalized Ratio Activated 29.7 Partial Thromboplast Time Sodium Level 132 L Potassium Level 4.2 Chloride Level 96 L Carbon Dioxide Level 23 Anion Gap 13 Blood Urea Nitrogen 11 Creatinine 0.58 Est Glomerular > 60 Filtrat Rate mL/min Glucose Level 462 *H Calcium Level 9.6 Total Bilirubin 0.9 Direct Bilirubin 0.00 Indirect Bilirubin 0.9 Aspartate Amino 28 Transf (AST/SGOT) Alanine 30 Aminotransferase (AL T/SGPT) Alkaline Phosphatase 90 Troponin I < 0.012 Total Protein 7.7 Albumin 4.0 Globulin 3.70 H Albumin/Globulin 1.08 Ratio Lipase 67 Bedside Urine pH 6.0 (LAB) Bedside Urine 1+ H Protein (LAB) Bedside Urine 0.50% H Glucose (UA) Bedside Urine Negative Ketones (LAB) Bedside Urine Blood 1+ H Bedside Urine Positive H Nitrite (LAB) Bedside Urine Negative Leukocyte Esterase (L POC Venous Lactate 1.8 POC Beta HCG, NEGATIVE Qualitative Test 09/08/18 04:25 09/08/18 05:27 09/08/18 06:33 09/08/18 07:03 Bedside Glucose 511 *H 444 *H 349 H POC Venous Lactate 1.4 Test 09/08/18 08:12 Lactic Acid Level 1.4 HPI/ROS Admit Date/Time Admit Date/Time Sep 08, 2018 at 05:31 Hx of Present Illness HPI This is a 38-year-old female who presents for evaluation of 2 days of intermittent abdominal pain and right-sided flank pain. Today she had a fever, generally felt unwell, and this is her primary reason for presentation. She has not had any vomiting, no chest pain or shortness of breath. She did not take any medication prior to arrival, there are no alleviating factors ROS All systems reviewed and are negative except as per history of present illness. Medications Home Meds Active Scripts Sulfamethoxazole/Trimethoprim (Sulfamethoxazole-Tmp Ds Tablet) 1 Each Tablet, 1 TAB PO BID for 5 Days, TAB Prov:LAURA REYNOSO 02/23/18 Levothyroxine Sodium* (Synthroid*) 137 Mcg Tablet, 137 MCG PO DAILY@0600 for 30 Days, TAB Prov:LAURA REYNOSO 02/23/18 Allergies Allergies: Coded Allergies: No Known Allergies (Verified Allergy, Unknown, 11/08/11) PMhx/Soc History of Surgery: Yes (CS X3) Anesthesia Reaction: No Hx Neurological Disorder: No Hx Respiratory Disorders: No Hx Cardiac Disorders: No Hx Psychiatric Problems: Yes (DEPRESSION ,ANXIETY) Hx Miscellaneous Medical Probl: Yes (hx. of VAPE use. ) Hx Alcohol Use: Yes Hx Substance Use: No Hx Tobacco Use: No (VAPE) ROS Eyes: no complaints ENT: no complaints Respiratory: no complaints Cardiovascular: no complaints Gastrointestinal: pain Genitourinary: no complaints Musculoskeletal: no complaints Skin: no complaints Neurologic: no complaints Endocrine: polyuria Psychological: no complaints PMH/Family/Social Past Medical History PMhx/Soc History of Surgery: Yes (CS X3) Anesthesia Reaction: No Hx Neurological Disorder: No Hx Respiratory Disorders: No Hx Cardiac Disorders: No Hx Psychiatric Problems: Yes (DEPRESSION ,ANXIETY) Hx Miscellaneous Medical Probl: Yes (hx. of VAPE use. ) Hx Alcohol Use: Yes Hx Substance Use: No Hx Tobacco Use: No (VAPE) Medical History: diabetes Medications Current Medications Acetaminophen/ Hydrocodone Bitart ([place] (5/325)) 1 tab Q6H PRN PO MODERATE PAIN LEVEL 4-6; Start 09/08/18 at 12:00 Diagnostic Test (Pha) (Accu-Chek) 1 ea 02 XX ; Start 09/09/18 at 02:00 Insulin Aspart (Novolog Insulin Pen) NOVOLOG *MILD* ALGORITHM WITH MEALS BEDTIME SC ; Start 09/08/18 at 18:00 Levothyroxine Sodium (Synthroid) 137 mcg DAILY@06 PO ; Start 09/09/18 at 06:00 Miscellaneous Information 1 ea NOTE XX ; Start 09/08/18 at 13:30 Glucose (Glutose) 15 gm Q15M PRN PO DECREASED GLUCOSE; Start 09/08/18 at 13:30 Glucose (Glutose) 22.5 gm Q15M PRN PO DECREASED GLUCOSE; Start 09/08/18 at 13:30 Dextrose (D50w Syringe) 25 ml Q15M PRN IV DECREASED GLUCOSE; Start 09/08/18 at 13:30 Dextrose (D50w Syringe) 50 ml Q15M PRN IV DECREASED GLUCOSE; Start 09/08/18 at 13:30 Glucagon (Glucagen) 1 mg Q15M PRN IM DECREASED GLUCOSE; Start 09/08/18 at 13:30 Glucose (Glutose) 15 gm Q15M PRN BUCCAL DECREASED GLUCOSE; Start 09/08/18 at 13:30 Coded Allergies: No Known Allergies (Verified Allergy, Unknown, 09/08/18) Family History Significant Family History: no pertinent family hx Social History Smoking Status: Former smoker Exam/Review of Systems Vital Signs Vitals Vital Signs Date Temp Pulse Resp B/P (MAP) Pulse Ox O2 O2 Flow FiO2 Time Delivery Rate 09/08/18 101.3 54 20 131/61 99 14:24 (84) 09/08/18 Room Air 09:30 Intake and Output 09/07/18 09/07/18 09/08/18 1515:00 23:00 07:00 IntakeIntake Total 3230 ml BalanceBalance 3230 ml Exam Constitutional: alert, well developed Psych: nl mood/affect Eyes: nl lids ENMT: nl external ears & nose Neck: non-tender Respiratory: clear to auscultation Cardiovascular: nl pulses, other (s1s2) Gastrointestinal: soft, tender (diffuse) Musculoskeletal: nl extremities to inspection Extremities: normal pulses Neurological: nl mental status, nl speech LAURA REYNOSO Sep 08, 2018 15:43
--- NOTE | 2018-09-10 04:55 | PN ---
Date/Time of Note Date/Time of Note DATE: 09/10/18 TIME: 04:55 Assessment/Plan VTE Prophylaxis Risk score (from Nsg)>0 risk: 2 SCD applied (from Nsg): Yes Lines/Catheters IV Catheter Type (from Nrsg): Saline Lock Urinary Cath still in place: No Assessment/Plan Assessment/Plan - Sepsis - ID consult- Dr Mcgrath - UTI - antibiotics per ID - Abdominal pain - CT abdomen/pelvis - No acute process in the imaged abdomen or pelvis.. No renal calcifications and no evidence of obstructive uropathy. - Gi consult- Dr Odonnell - pain control -PPI - Diabetes - Endocrinology consult- Dr Edwards - Glycemic control - Hgb AIC AM - Hypothyroidism - cont Sythroid - will do TSH am - Former Smoker - reinforce smoking cessation -Depression-no acute issues -Anxiety -SCD s Patient is seen in collaboration with Dr Ramirez Result Diagram: 09/09/187 09/09/18 0427 Results 24hrs Laboratory Tests Test 09/09/18 10:10 09/09/18 12:12 09/09/18 12:13 09/09/18 13:10 Bedside Glucose 206 203 189 169 Test 09/09/18 17:26 09/09/18 21:21 Bedside Glucose 123 200 Exam/Review of Systems Exam Vitals Vital Signs Date Temp Pulse Resp B/P (MAP) Pulse Ox O2 O2 Flow FiO2 Time Delivery Rate 09/10/18 98.3 83 18 112/64 95 02:17 (80) 09/08/18 Room Air 18:09 Intake and Output 09/09/18 09/09/18 09/10/18 1515:00 23:00 07:00 IntakeIntake Total 1440 ml 1080 ml 480 ml BalanceBalance 1440 ml 1080 ml 480 ml Results Results 24hrs Laboratory Tests Test 09/09/18 10:10 09/09/18 12:12 09/09/18 12:13 09/09/18 13:10 Bedside Glucose 206 203 189 169 Test 09/09/18 17:26 09/09/18 21:21 Bedside Glucose 123 200 Medications Medication Current Medications Insulin Aspart (Novolog Insulin Pen) NOVOLOG *MILD* ALGORITHM WITH MEALS BEDTIME SC Last administered on 09/09/18at 21:32; Admin Dose 1 UNIT; Start 09/08/18 at 18:00 Miscellaneous Information 1 ea NOTE XX ; Start 09/08/18 at 13:30 Glucose (Glutose) 15 gm Q15M PRN PO DECREASED GLUCOSE; Start 09/08/18 at 13:30 Glucose (Glutose) 22.5 gm Q15M PRN PO DECREASED GLUCOSE; Start 09/08/18 at 13:30 Dextrose (D50w Syringe) 25 ml Q15M PRN IV DECREASED GLUCOSE; Start 09/08/18 at 13:30 Dextrose (D50w Syringe) 50 ml Q15M PRN IV DECREASED GLUCOSE; Start 09/08/18 at 13:30 Glucagon (Glucagen) 1 mg Q15M PRN IM DECREASED GLUCOSE; Start 09/08/18 at 13:30 Glucose (Glutose) 15 gm Q15M PRN BUCCAL DECREASED GLUCOSE; Start 09/08/18 at 13:30 Pantoprazole (Protonix Tab) 40 mg BID@06,18 PO Last administered on 09/09/18at 17:27; Admin Dose 40 MG; Start 09/08/18 at 18:00 Acetaminophen (Tylenol Tab) 650 mg Q6H PRN PO MILD PAIN(1-3)OR ELEVATED TEMP Last administered on 09/09/18at 18:55; Admin Dose 650 MG; Start 09/08/18 at 16:30 Diagnostic Test (Pha) (Accu-Chek) 1 ea 02 XX ; Start 09/09/18 at 02:00 Insulin Glargine (Lantus) 21 units DAILY@2000 SC Last administered on 09/09/18at 21:28; Admin Dose 21 UNITS; Start 09/08/18 at 20:00 Insulin Aspart (Novolog Insulin Pen) 10 unit WITH MEALS SC Last administered on 09/09/18at 17:30; Admin Dose 10 UNIT; Start 09/09/18 at 08:00 Metformin HCl (Glucophage Xr) 500 mg BID PO Last administered on 09/09/18at 21:23; Admin Dose 500 MG; Start 09/08/18 at 21:00 Levothyroxine Sodium (Synthroid) 150 mcg DAILY@06 PO ; Start 09/10/18 at 06:00 LAURA REYNOSO September 10, 2018 04:55
[2018-09-10] MEDS: PANTOPRAZOLE (EC) 40 MG TAB PO SCH ×2 (05:31→17:58)
[2018-09-10] MEDS ORDERED: LEVOTHYROXINE 150 MCG TAB PO SCH (06:00)
[2018-09-10] MEDS: INSULIN ASPART [NOVOLOG] 3 ML PEN SC SCH ×7 (07:57→20:00)
[2018-09-10] MEDS: metFORMIN (XR) 500 MG TAB PO SCH ×2 (08:00→21:32)
[2018-09-10 08:06] VITALS: BP 125/70; PULSE 83; RESP 18
[2018-09-10 13:51] VITALS: BP 131/61; PULSE 83; RESP 17
--- NOTE | 2018-09-10 14:28 | CONS ---
Assessment/Plan Assessment/Plan Hospital Course (Demo Recall) assessment/impression - sepsis due to upper UTI and pyelonephritis - upper UTI and pyelonephritis due to E. coli and klebsiella - h/o UTI - hypothyroidism recommendations - I recommend continuing ceftriaxone (09/07/2018-) as she is still symptomatic and having low grade temp. Once she improves, her antibiotic may be switched to PO cephalexin management explained to Pt (She fell asleep) Consultation Date/Type/Reason Admit Date/Time Sep 08, 2018 at 05:31 Initial Consult Date 09/08/18 Type of Consult ID Requesting Provider: LAURA REYNOSO Date/Time of Note DATE: 09/10/18 TIME: 14:26 24 HR Interval Summary Subjective hx not possible: pt non-verbal, other (very lethargic and answered only a few questions) Detailed Summary Genitourinary: dysuria, flank pain Exam/Review of Systems Exam Vitals Vital Signs Date Temp Pulse Resp B/P (MAP) Pulse Ox O2 O2 Flow FiO2 Time Delivery Rate 09/10/18 99.1 83 17 131/61 96 13:51 (84) 09/08/18 Room Air 18:09 Intake and Output 09/09/18 09/09/18 09/10/18 1515:00 23:00 07:00 IntakeIntake Total 1440 ml 1080 ml 480 ml BalanceBalance 1440 ml 1080 ml 480 ml Constitutional: non-verbal, other (too sleepy after pain meds) Head: normocephalic, atraumatic Eyes: nl conjunctiva, nl lids ENMT: nl external ears & nose, nl nasal mucosa & septum, mucosa pink and moist Neck: supple, other (not swollen) Respiratory: clear to auscultation, normal air movement Cardiovascular: regular rate and rhythm, nl pulses Gastrointestinal: soft; No distended, No tender Genitourinary - Female: No CVA tenderness Musculoskeletal: nl extremities to inspection Extremities: normal pulses Neurological: lethargic Skin: No rash or lesions Results Result Diagram: 09/10/18 0423 09/10/18 0423 Results 24hrs Laboratory Tests Test 09/09/18 17:26 09/09/18 21:21 09/10/18 04:23 09/10/18 07:55 Bedside Glucose 123 200 186 White Blood Count 6.8 # Red Blood Count 4.38 Hemoglobin 12.0 Hematocrit 36.1 L Mean Corpuscular 82.4 Volume Mean Corpuscular 27.4 L Hemoglobin Mean Corpuscular 33.2 Hemoglobin Concent Red Cell Distribution 12.3 Width Platelet Count 225 Mean Platelet Volume 9.9 Immature Granulocytes 0.400 % Neutrophils % 72.3 Lymphocytes % 16.2 Monocytes % 9.9 Eosinophils % 0.9 Basophils % 0.3 Nucleated Red Blood 0.0 Cells % Immature Granulocytes 0.030 # Neutrophils # 4.9 Lymphocytes # 1.1 Monocytes # 0.7 Eosinophils # 0.1 Basophils # 0.0 Nucleated Red Blood 0.0 Cells # Sodium Level 137 Potassium Level 3.7 Chloride Level 105 Carbon Dioxide Level 24 Anion Gap 8 Blood Urea Nitrogen 9 Creatinine 0.46 Est Glomerular Filtrat > 60 Rate mL/min Glucose Level 192 Calcium Level 8.6 Total Bilirubin 0.4 Direct Bilirubin 0.00 Indirect Bilirubin 0.4 Aspartate Amino 19 Transf (AST/SGOT) Alanine 29 Aminotransferase (ALT/ SGPT) Alkaline Phosphatase 107 Total Protein 6.2 Albumin 3.1 L Globulin 3.10 Albumin/Globulin Ratio 1.00 Test 09/10/18 12:35 Bedside Glucose 169 Medications Medication Current Medications Insulin Aspart (Novolog Insulin Pen) NOVOLOG *MILD* ALGORITHM WITH MEALS BEDTIME SC Last administered on 09/10/18at 12:37; Admin Dose 1 UNIT; Start 09/08/18 at 18:00 Miscellaneous Information 1 ea NOTE XX ; Start 09/08/18 at 13:30 Glucose (Glutose) 15 gm Q15M PRN PO DECREASED GLUCOSE; Start 09/08/18 at 13:30 Glucose (Glutose) 22.5 gm Q15M PRN PO DECREASED GLUCOSE; Start 09/08/18 at 13:30 Dextrose (D50w Syringe) 25 ml Q15M PRN IV DECREASED GLUCOSE; Start 09/08/18 at 13:30 Dextrose (D50w Syringe) 50 ml Q15M PRN IV DECREASED GLUCOSE; Start 09/08/18 at 13:30 Glucagon (Glucagen) 1 mg Q15M PRN IM DECREASED GLUCOSE; Start 09/08/18 at 13:30 Glucose (Glutose) 15 gm Q15M PRN BUCCAL DECREASED GLUCOSE; Start 09/08/18 at 13:30 Pantoprazole (Protonix Tab) 40 mg BID@06,18 PO Last administered on 09/10/18 05:31; Admin Dose 40 MG; Start 09/08/18 at 18:00 Acetaminophen (Tylenol Tab) 650 mg Q6H PRN PO MILD PAIN(1-3)OR ELEVATED TEMP Last administered on 09/09/18at 18:55; Admin Dose 650 MG; Start 09/08/18 at 16:30 Diagnostic Test (Pha) (Accu-Chek) 1 ea 02 XX ; Start 09/09/18 at 02:00 Insulin Glargine (Lantus) 21 units DAILY@2000 SC Last administered on 09/09/18 21:28; Admin Dose 21 UNITS; Start 09/08/18 at 20:00 Insulin Aspart (Novolog Insulin Pen) 10 unit WITH MEALS SC Last administered on 09/10/18at 12:37; Admin Dose 10 UNIT; Start 09/09/18 at 08:00 Metformin HCl (Glucophage Xr) 500 mg BID PO Last administered on 09/10/18 08:00; Admin Dose 500 MG; Start 09/08/18 at 21:00 Levothyroxine Sodium (Synthroid) 137 mcg DAILY@06 PO ; Start 09/11/18 at 06:00 JOHN WEN M.D. September 10, 2018 14:28
--- NOTE | 2018-09-10 18:15 | CONS ---
Assessment/Plan Assessment/Plan Problems: (1) Type 2 diabetes mellitus with hyperglycemia Status: Chronic Comment: BG fair but remains above goal. Will increase lantus to 24 units qhs and Novolog to 12 units qac. Despite previous note suggesting pt. might be able to go home off of insulin, w/ increase in dose requirement I now believe that she should cont. on current doses of insulin and metformin after d/c. Qualifiers: Diabetes mellitus senior care insulin use: without senior care use Qualified Codes: E11.65 - Type 2 diabetes mellitus with hyperglycemia Consultation Date/Type/Reason Admit Date/Time Sep 08, 2018 at 05:31 Initial Consult Date 09/08/18 Type of Consult Endocrinology Reason for Consultation T2DM OOC Requesting Provider: LAURA REYNOSO Date/Time of Note DATE: 09/10/18 TIME: 18:13 24 HR Interval Summary Constitutional: no complaints, improved Detailed Summary Respiratory: no complaints Cardiovascular: no complaints Gastrointestinal: no complaints Genitourinary: no complaints Musculoskeletal: no complaints Neurologic: no complaints Psychological: anxiety (re: home situation; wants to be d/c'ed) Exam/Review of Systems Exam Vitals VS - Last 72 Hours, by Label Date Temp Pulse Resp B/P (MAP) Pulse Ox O2 O2 Flow FiO2 Time Delivery Rate 09/10/18 99.1 83 17 131/61 96 13:51 (84) 09/10/18 98.4 83 18 125/70 93 08:06 (88) 09/10/18 98.3 83 18 112/64 95 02:17 (80) 09/09/18 99.9 55 18 122/69 100 20:53 (86) 09/09/18 99.0 91 20 112/68 98 14:09 (83) 09/09/18 100.0 104 20 121/75 97 08:02 (90) 09/09/18 97.7 95 18 113/66 94 01:46 (82) 09/08/18 98.4 96 17 123/58 97 19:52 (79) 09/08/18 99.6 95 16 103/52 97 Room Air 18:09 (69) 09/08/18 100.3 17:38 09/08/18 101.3 54 20 131/61 99 14:24 (84) 09/08/18 99.7 102 18 153/79 99 Room Air 09:30 (103) 09/08/18 86 18 139/88 100 Room Air 09:00 (105) 09/08/18 99.2 85 18 113/66 100 Room Air 07:30 (82) 09/08/18 98.8 89 18 106/62 100 Room Air 07:00 (77) 09/08/18 88 18 106/59 97 Room Air 06:35 (75) 09/08/18 99.5 91 26 134/73 96 Room Air 05:34 (93) 09/08/18 101.6 115 18 141/85 99 04:01 (103) Vital Signs Date Temp Pulse Resp B/P (MAP) Pulse Ox O2 O2 Flow FiO2 Time Delivery Rate 09/10/18 99.1 83 17 131/61 96 13:51 (84) 09/08/18 Room Air 18:09 Intake and Output 09/09/18 09/09/18 09/10/18 1414:59 22:59 06:59 IntakeIntake Total 1440 ml 1080 ml 480 ml BalanceBalance 1440 ml 1080 ml 480 ml Constitutional: alert, oriented, obese Psych: no complaints, nl mood/affect Respiratory: clear to auscultation, normal air movement Cardiovascular: regular rate and rhythm, nl pulses; No edema, No murmurs/extra sounds, No rub Gastrointestinal: soft, nl liver, spleen, non-tender, bowel sounds; No mass, No rebound or guarding Musculoskeletal: nl extremities to inspection Extremities: normal pulses; No cyanosis, No clubbing, No edema 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, nl mental status, nl speech, nl strength Additional Comments Bedside Glucose - 72 Hours Test 09/08/18 04:25 09/08/18 05:27 09/08/18 07:03 09/08/18 17:56 Bedside 511 444 349 217 Glucose mg/dL (70-220) mg/dL (70-220) mg/dL (70-220) mg/dL (70-220) *H *H H Test 09/08/18 22:01 09/09/18 03:14 09/09/18 10:10 09/09/18 12:12 Bedside 190 217 206 203 Glucose mg/dL (70-220) mg/dL (70-220) mg/dL (70-220) mg/dL (70-220) Test 09/09/18 12:13 09/09/18 13:10 09/09/18 17:26 09/09/18 21:21 Bedside 189 169 123 200 Glucose mg/dL (70-220) mg/dL (70-220) mg/dL (70-220) mg/dL (70-220) Test 09/10/18 07:55 09/10/18 12:35 09/10/18 17:55 Bedside 186 169 188 Glucose mg/dL (70-220) mg/dL (70-220) mg/dL (70-220) Results Result Diagram: 09/10/18 0423 09/10/18 0423 Results 24hrs Laboratory Tests Test 09/09/18 21:21 09/10/18 04:23 09/10/18 07:55 09/10/18 12:35 Bedside Glucose 200 186 169 White Blood Count 6.8 # Red Blood Count 4.38 Hemoglobin 12.0 Hematocrit 36.1 L Mean Corpuscular Volume 82.4 Mean Corpuscular 27.4 L Hemoglobin Mean Corpuscular 33.2 Hemoglobin Concent Red Cell Distribution 12.3 Width Platelet Count 225 Mean Platelet Volume 9.9 Immature Granulocytes % 0.400 Neutrophils % 72.3 Lymphocytes % 16.2 Monocytes % 9.9 Eosinophils % 0.9 Basophils % 0.3 Nucleated Red Blood 0.0 Cells % Immature Granulocytes # 0.030 Neutrophils # 4.9 Lymphocytes # 1.1 Monocytes # 0.7 Eosinophils # 0.1 Basophils # 0.0 Nucleated Red Blood 0.0 Cells # Sodium Level 137 Potassium Level 3.7 Chloride Level 105 Carbon Dioxide Level 24 Anion Gap 8 Blood Urea Nitrogen 9 Creatinine 0.46 Est Glomerular Filtrat > 60 Rate mL/min Glucose Level 192 Calcium Level 8.6 Total Bilirubin 0.4 Direct Bilirubin 0.00 Indirect Bilirubin 0.4 Aspartate Amino 19 Transf (AST/SGOT) Alanine 29 Aminotransferase (ALT/S GPT) Alkaline Phosphatase 107 Total Protein 6.2 Albumin 3.1 L Globulin 3.10 Albumin/Globulin Ratio 1.00 Test 09/10/18 17:55 Bedside Glucose 188 Medications Medication Current Medications Insulin Aspart (Novolog Insulin Pen) NOVOLOG *MILD* ALGORITHM WITH MEALS BEDTIME SC Last administered on 09/10/18at 17:57; Admin Dose 2 UNIT; Start 09/08/18 at 18:00 Miscellaneous Information 1 ea NOTE XX ; Start 09/08/18 at 13:30 Glucose (Glutose) 15 gm Q15M PRN PO DECREASED GLUCOSE; Start 09/08/18 at 13:30 Glucose (Glutose) 22.5 gm Q15M PRN PO DECREASED GLUCOSE; Start 09/08/18 at 13:30 Dextrose (D50w Syringe) 25 ml Q15M PRN IV DECREASED GLUCOSE; Start 09/08/18 at 13:30 Dextrose (D50w Syringe) 50 ml Q15M PRN IV DECREASED GLUCOSE; Start 09/08/18 at 13:30 Glucagon (Glucagen) 1 mg Q15M PRN IM DECREASED GLUCOSE; Start 09/08/18 at 13:30 Glucose (Glutose) 15 gm Q15M PRN BUCCAL DECREASED GLUCOSE; Start 09/08/18 at 13:30 Pantoprazole (Protonix Tab) 40 mg BID@06,18 PO Last administered on 09/10/18at 17:58; Admin Dose 40 MG; Start 09/08/18 at 18:00 Acetaminophen (Tylenol Tab) 650 mg Q6H PRN PO MILD PAIN(1-3)OR ELEVATED TEMP Last administered on 09/09/18at 18:55; Admin Dose 650 MG; Start 09/08/18 at 16:30 Diagnostic Test (Pha) (Accu-Chek) 1 ea 02 XX ; Start 09/09/18 at 02:00 Metformin HCl (Glucophage Xr) 500 mg BID PO Last administered on 09/10/18at 08:00; Admin Dose 500 MG; Start 09/08/18 at 21:00 Levothyroxine Sodium (Synthroid) 137 mcg DAILY@06 PO ; Start 09/11/18 at 06:00 Insulin Aspart (Novolog Insulin Pen) 12 unit WITH MEALS SC ; Start 09/11/18 at 08:00; Status UNV Insulin Glargine (Lantus) 24 units DAILY@2000 SC ; Start 09/10/18 at 20:00; Status LALO AMBRIZ MD September 10, 2018 18:15
[2018-09-10 20:00] VITALS: BP 118/57; PULSE 81; RESP 18
[2018-09-10] MEDS ORDERED: INSULIN GLARGINE [LANTus] (100 UNITS/ML) SYG SC SCH (20:00)
[2018-09-11] MEDS ORDERED: LEVOTHYROXINE 137 MCG TAB PO SCH (06:00)
[2018-09-11] MEDS ORDERED: INSULIN ASPART [NOVOLOG] 3 ML PEN SC SCH (08:00)
== END 2018-09-10 22:15 | disposition left against medical advice (07) | DRG 872 ==
LOC: E/R 03:57 → 2NE 05:31 → EDBEDREQ 08:40 → EDBEDREQSVC 08:40
PROVIDERS: ADMIT Internal Medicine; ATTEND Internal Medicine
DX: A41.9 Sepsis, unspecified organism (principal); N12 Tubulo-interstitial nephritis, not specified as acute or chronic; Z68.41 Body mass index [BMI] 40.0-44.9, adult; E03.9 Hypothyroidism, unspecified; E11.65 Type 2 diabetes mellitus with hyperglycemia; E66.01 Morbid (severe) obesity due to excess calories; Z87.440 Personal history of urinary (tract) infections; Z87.891 Personal history of nicotine dependence
CPT/HCPCS: 36415; 71045; 74176; 80048; 80053; 81001; 81003; 81025; 82962; 83036; 83605; 83690; 84443; 84484; 85025; 85610; 85730; 87086; 93005; 96365; 96372; 96375; J0696; J1815; J1885; J7030